=== PATIENT | male | born 1965 | race Caucasian/White ===

== ENCOUNTER 2017-01-27 14:36 | Emergency (ER) | payer OTHER ==
[2017-01-27 14:42] VITALS: RESP 18
--- NOTE | 2017-01-27 15:41 | CPEKG ---
Heart Rate: 68 RR Interval: 882 P-R Interval: 152 QRSD Interval: 94 QT Interval: 420 QTC Interval: 447 P Crandon: 35 QRS Crandon: 36 T Wave Crandon: 105 EKG Severity - ABNORMAL ECG - EKG Impression: SINUS TACHYCARDIA EKG Impression: MULTIFORM VENTRICULAR PREMATURE COMPLEXES Electronically Signed By: Brandon Toledo 27-Jan-2017 16:52:13
--- NOTE | 2017-01-27 15:58 | EDPHY ---
H & P Stated Complaint: Dizzy, Slow to mentate Time Seen by Provider: 01/27/17 15:48 HPI/ROS: CHIEF COMPLAINT: Fatigue," feels out of it" HISTORY OF PRESENT ILLNESS: The patient presents to the ED with a 1 day history of fatigue and mild confusion. The patient reportedly developed fairly significant symptoms several hours prior to arrival where he was having difficulty remembering names and reported subjective confusion. The patient reportedly had some paresthesias in his left arm and leg which have improved. He currently complains of a mild bilateral frontal headache. The patient states that he has no prior history of the symptoms. He denies significant past medical history. He denies history of fall or trauma. He is not had a history of recent illness. The patient states that he did have a fairly strenuous hike over the weekend. He feels as if he has had normal hydration today. He denies any stressful events of work. Patient denies chest pain or shortness of breath. The patient denies fever, cough or congestion. The patient denies additional acute complaints. REVIEW OF SYSTEMS: A comprehensive 10 point review of systems is otherwise negative aside from elements mentioned in the history of present illness. Source: Patient Exam Limitations: No limitations - Personal History Current Tetanus Diphtheria and Acellular Pertussis (TDAP): Yes - Medical/Surgical History Hx Asthma: No Hx Chronic Respiratory Disease: No Hx Diabetes: No Hx Cardiac Disease: No Hx Renal Disease: No Hx Cirrhosis: No Hx Alcoholism: No Hx HIV/AIDS: No Hx Splenectomy or Spleen Trauma: No Other PMH: Denies - Social History Smoking Status: Former smoker - Physical Exam Exam: General Appearance: Alert, no distress Eyes: Pupils equal and round no pallor or injection ENT, Mouth: Mucous membranes moist Respiratory: There are no retractions, lungs are clear to auscultation Cardiovascular: Regular rate and rhythm Gastrointestinal: Abdomen is soft and nontender, no masses, bowel sounds normal Neurological: Alert and oriented x4, 5/5 strength noted all 4 extremities, cranial nerves 2-12 intact, sensation intact to light touch Skin: Warm and dry, no rashes Musculoskeletal: Neck is supple nontender Extremities: symmetrical, full range of motion Constitutional: Initial Vital Signs Temperature (C) 36.6 C 01/27/17 14:40 Heart Rate 80 01/27/17 14:40 Respiratory Rate 18 01/27/17 14:40 Blood Pressure 140/89 H 01/27/17 14:40 O2 Sat (%) 96 01/27/17 14:40 O2 Delivery Mode Room Air Allergies/Adverse Reactions: No Known Allergies Allergy (Unverified 01/27/17 14:39) Home Medications: Medication Instructions Recorded NK [No Known Home Meds] 01/27/17 Medical Decision Making - Diagnostics EKG Interpretation: EKG: Complete interpretation has been separately recorded in the [employer] archive. Summary impression: Sinus rhythm, trigeminal pattern of PVCs Imaging Results: Imaging Impressions Head CTA 01/27/17 17:13 Impression: 1. No acute vascular findings. 2. Mild carotid atherosclerosis, left greater than right, without significant stenosis. 3. Additional findings as above. Stenoses are calculated using [place] Symptomatic Carotid Endarterectomy Trial (NASCET) criteria. Findings discussed with Brandon Toledo 01/27/2017 at 18:22. Neck CTA 01/27/17 17:13 Impression: 1. No acute vascular findings. 2. Mild carotid atherosclerosis, left greater than right, without significant stenosis. 3. Additional findings as above. Stenoses are calculated using [place] Symptomatic Carotid Endarterectomy Trial (NASCET) criteria. Findings discussed with Brandon Toledo 01/27/2017 at 18:22. ED Course/Re-evaluation: The patient presents to the ED after an episode of confusion, word finding difficulties and reported paresthesias in the left arm and leg. This was then proceeded by the development of a mild frontal headache. The patient has no prior history of the symptoms. The patient arrived to the emergency department with resolved symptoms and remained asymptomatic throughout his stay in the ED. The patient's EKG demonstrated only PVCs. The patient did have a noncontrast head CT scan which demonstrated no evidence of intracranial abnormality or hemorrhage. The patient also had CT angiogram of the head neck which demonstrated no evidence of dissection or thrombosis. The patient was examined multiple times by myself throughout his stay in the emergency department. At this point time I believe this is likely a migrainous phenomenon as opposed to TIA based upon the patient's age and risk factors. We have excluded evidence of significant hypertension, arrhythmia or flow limiting stenosis. The patient is comfortable being discharged home. I have informed him that he should return to the ED immediately for any recurrent neurologic symptoms or other acute concerns. The patient will be referred to our on-call neurologist should he developed any intermittent mild ongoing neurologic symptoms and headache. The patient has no clinical evidence of meningitis or seizure disorder based upon his evaluation today. Differential Diagnosis: Differential diagnosis considered includes migraine syndrome, seizure, stroke, TIA, dissection, arrhythmia, metabolic abnormality, encephalopathy - Data Points Laboratory Results: Laboratory Results 01/27/17 15:40 01/27/17 15:40 01/27/17 01/27/17 15:40 15:40 WBC 6.37 10^3/uL 10^3/uL (3.80-9.50) RBC 5.08 10^6/uL 10^6/uL (4.40-6.38) Hgb 14.0 g/dL g/dL (13.7-17.5) Hct 41.7 % % (40.0-51.0) MCV 82.1 fL fL (81.5-99.8) MCH 27.6 pg L pg (27.9-34.1) MCHC 33.6 g/dL g/dL (32.4-36.7) RDW 14.7 % % (11.5-15.2) Plt Count 221 10^3/uL 10^3/uL (150-400) MPV 10.5 fL fL (8.7-11.7) Neut % (Auto) 67.3 % % (39.3-74.2) Lymph % (Auto) 21.7 % % (15.0-45.0) Garland % (Auto) 8.5 % % (4.5-13.0) Eos % (Auto) 1.4 % % (0.6-7.6) Baso % (Auto) 0.8 % % (0.3-1.7) Nucleat RBC Rel Count 0.0 % % (0.0-0.2) Absolute Neuts (auto) 4.29 10^3/uL 10^3/uL (1.70-6.50) Absolute Lymphs (auto) 1.38 10^3/uL 10^3/uL (1.00-3.00) Absolute Monos (auto) 0.54 10^3/uL 10^3/uL (0.30-0.80) Absolute Eos (auto) 0.09 10^3/uL 10^3/uL (0.03-0.40) Absolute Basos (auto) 0.05 10^3/uL 10^3/uL (0.02-0.10) Absolute Nucleated RBC 0.00 10^3/uL 10^3/uL (0-0.01) Immature Gran % 0.3 % % (0.0-1.1) Immature Gran # 0.02 10^3/uL 10^3/uL (0.00-0.10) Sodium 142 mEq/L mEq/L (134-144) Potassium 4.3 mEq/L mEq/L (3.5-5.2) Chloride 109 mEq/L mEq/L (97-110) Carbon Dioxide 21 mEq/l L mEq/l (22-31) Anion Gap 12 mEq/L mEq/L (8-16) BUN 16 mg/dL mg/dL (7-23) Creatinine 1.1 mg/dL mg/dL (0.7-1.3) Estimated GFR > 60 Glucose 99 mg/dL mg/dL (70-100) Calcium 9.5 mg/dL mg/dL (8.5-10.4) Medications Given: Discontinued Medications Sodium Chloride (Ns) 1,000 mls @ 0 mls/hr IV EDNOW ONE; Wide Open PRN Reason: Protocol Stop: 01/27/17 16:10 Last Admin: 01/27/17 16:13 Dose: 1,000 mls Sodium Chloride (Ns) 1,000 mls @ 0 mls/hr IV EDNOW ONE; Wide Open PRN Reason: Protocol Stop: 01/27/17 16:10 Last Admin: 01/27/17 16:14 Dose: 1,000 mls Departure - Departure Disposition: Home, Routine, Self-Care Clinical Impression: Migraine variant with headache Condition: Good Instructions: Migraine Headache (ED) Additional Instructions: 1. The testing done in the emergency department today demonstrates no obvious abnormalities. 2. I do believe you likely experienced a migraine type phenomenon today. I do recommend that you return to the ED immediately for severe headache, recurrent neurologic symptoms or other concerns. 3. You have been referred to our on-call neurologist for an evaluation. 4. Please schedule a follow-up appointment with your primary care provider at [place]. Referrals: MD [facility] [Other] - As per Instructions
[2017-01-27 15:59] LABS: % IMMATURE GRANULYOCYTES 0.3 % (0.0-1.1); ABSOLUTE IMMATURE GRANULOCYTES 0.02 10^3/uL (0.00-0.10); ADD DIFF? NO; ADD MORPH? NO; ADD SCAN? NO; ATYPICAL LYMPHOCYTE FLAG 10 (0-99); FRAGMENT RBC FLAG 0 (0-99); HEMATOCRIT 41.7 % (40.0-51.0); LEFT SHIFT FLG 0 (0-99); LIPEMIA HEMOLYSIS FLAG 80 (0-99); MEAN CELL HEMOGLOBIN 27.6 pg (27.9-34.1); MEAN CELL HEMOGLOBIN CONCENTR. 33.6 g/dL (32.4-36.7); MEAN CELL VOLUME 82.1 fL (81.5-99.8); MEAN PLATELET VOLUME 10.5 fL (8.7-11.7); PLATELET CLUMPS FLAG 0 (0-99); PLATELET COUNT 221 10^3/uL (150-400); RED BLOOD CELL COUNT 5.08 10^6/uL (4.40-6.38); RED CELL DISTRIBUTION WIDTH 14.7 % (11.5-15.2)
[2017-01-27 16:05] LABS: ANION GAP 12 mEq/L (8-16); CALCIUM 9.5 mg/dL (8.5-10.4); CARBON DIOXIDE 21 mEq/l (22-31); CHLORIDE 109 mEq/L (97-110); CREATININE 1.1 mg/dL (0.7-1.3); GLOMERULAR FILTRATION RATE > 60; GLUCOSE 99 mg/dL (70-100); POTASSIUM 4.3 mEq/L (3.5-5.2); SODIUM 142 mEq/L (134-144)
[2017-01-27] MEDS ORDERED: NS 1,000 ML IV ONE ×2 (16:09)
[2017-01-27] MEDS ORDERED: IOPAMIDOL (ISOVUE 370) 100 ML BTL IV ONE (17:19)
[2017-01-27 18:53] VITALS: BP 151/106; PULSE 73; TEMP 98.1; O2SAT 98
== END 2017-01-27 18:53 | disposition home or self-care (01) ==
DX: G43.909 Migraine, unspecified, not intractable, without status migrainosus (principal); E86.9 Volume depletion, unspecified; Z87.891 Personal history of nicotine dependence
CPT/HCPCS: Q9967